=== PATIENT | female | born 1960 | race Caucasian/White ===

== ENCOUNTER 2017-08-21 11:44 | Inpatient (IN) | payer OTHER ==
[~2017-08-21] VITALS: Ht 157.5 cm; Wt 64.9 kg
[~2017-08-21 11:44] MED LIST: CELLCEPT500 MG PO; CITANEST PLAIN1.8 ML; MILLIPRED5 MG PO; PERCOCET 5/3251 TAB PO; PLAQUENIL PO; ZANTAC25 MG/1 ML
[2017-08-21] MEDS ORDERED: CELLCEPT250 MG PO (15:16)
[2017-08-21] MEDS ORDERED: PLAQUENIL PO (15:16)
[2017-08-21] MEDS ORDERED: PRENISONE PO (15:17)
[2017-08-29] MEDS ORDERED: PERCOCET 5-3251 EACH PO (09:49)
[2017-08-29] MEDS ORDERED: SYNTHROID100 MCG PO (09:51)
== END 2017-08-29 13:28 | disposition home or self-care (01) | DRG 627 ==
LOC: SURG 08-28 09:34 → O/R 08-28 09:34 → SURG 08-28 11:30
PROVIDERS: Surgery
PROC: 0GTH0ZZ Resection of Right Thyroid Gland Lobe, Open Approach (ICD-10-PCS; principal; 2017-08-28 11:30)
DX: C73 Malignant neoplasm of thyroid gland (principal)

== ENCOUNTER 2017-11-12 10:20 | Outpatient (CLI) | payer OTHER ==
[~2017-11-12 10:20] MED LIST changes: +CELLCEPT250 MG PO; +PERCOCET 5-3251 EACH PO; +PRENISONE PO; +SYNTHROID100 MCG PO
== END 2017-11-12 10:23 | disposition home or self-care (01) ==
LOC: LAB 10:20
DX: C73 Malignant neoplasm of thyroid gland (principal); E89.0 Postprocedural hypothyroidism